=== PATIENT | female | born 1990 | race African-American/Black ===

== ENCOUNTER 2018-08-28 09:22 | Emergency (ER) | payer OTHER ==
[~2018-08-28] VITALS: Ht 170.2 cm; Wt 117.9 kg
[2018-08-28] MEDS ORDERED: KETOROLAC TROMETHAMINE 30 MG/ML VIAL IV STA (09:43)
--- NOTE | 2018-08-28 10:34 | Diagnostic Imaging Report ---
EXAM: CT Abdomen and Pelvis WITHOUT contrast INDICATION: Left flank and pelvic pain COMPARISON: None. TECHNIQUE: Abdomen and pelvis were scanned utilizing a multidetector helical scanner from the lung base to the pubic symphysis without administration of IV contrast. Absence of intravenous contrast decreases sensitivity for detection of focal lesions and vascular pathology. Coronal and sagittal reformations were obtained. Routine protocol was performed. Dose modulation, iterative reconstruction, and/or weight based adjustment of the mA/kV was utilized to reduce the radiation dose to as low as reasonably achievable. IV CONTRAST: None. ORAL CONTRAST: None RADIATION DOSE: Total DLP: 850.29 mGy*cm Estimated effective dose: (DLP x 0.015 x size factor) mSv COMPLICATIONS: None FINDINGS: LINES and TUBES: None. LOWER THORAX: Lung bases clear. Heart size normal. HEPATOBILIARY: No focal hepatic lesions. No biliary ductal dilation. GALLBLADDER: No radio-opaque stones or sludge. No wall thickening. SPLEEN: No splenomegaly. PANCREAS: No focal masses or ductal dilatation. ADRENALS: No adrenal nodules KIDNEYS/URETERS: No hydronephrosis. No cystic or solid mass lesions. No stones. GI TRACT: No abnormal distention, wall thickening, or evidence of bowel obstruction. Appendix is normal. PELVIC ORGANS/BLADDER: The uterus is present and anteverted. Ovaries are not well visualized but may be cystic. Linear densities in the right and left pelvis likely compatible with fallopian tube closure devices. The urinary bladder is empty. LYMPH NODES: No dominant abdominal, retroperitoneal or pelvic lymphadenopathy. VESSELS: Unenhanced abdominal aorta shows no evidence for aneurysm. PERITONEUM / RETROPERITONEUM: No pneumoperitoneum or ascites. BONES: No acute or suspicious bony lesions. SOFT TISSUES: Superficial surrounding soft tissue unremarkable. IMPRESSION: 1. No urinary tract calculus or hydronephrosis. 2. No CT evidence for acute abdominal or pelvic pathology. Staff: Valeria Signed by: Dr. David Shaw M.D. on 08/28/2018 10:31 AM
[2018-08-28 11:52] VITALS: BP 150/90
== END 2018-08-28 11:57 | disposition home or self-care (01) ==
LOC: FSED 09:22
DX: R10.32 Left lower quadrant pain (principal); N30.90 Cystitis, unspecified without hematuria
CPT/HCPCS: 74176; 80053; 81003; 81025; 85025; 87086; 87186; 99284; J1885

== ENCOUNTER 2019-04-14 17:43 | Emergency (ER) | payer MEDICARE, OTHER ==
[~2019-04-14] VITALS: Ht 170.2 cm; Wt 117.9 kg
--- OUTSIDE RECORDS SUMMARY | 2019-04-14 17:45 | XMS REPORT ---
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 Allergies, Adverse Reactions, Alerts This patient has no known allergies or adverse reactions. Medications This patient has no known medications. Encounters Start Date/Time End Date/Time Encounter Type Admission Type Attending [facility] Care Department Encounter ID 2017-09-14 00:00:00 2017-09-14 00:00:00 Outpatient [facility] [id number] 2017-09-02 00:00:00 2017-09-02 00:00:00 Outpatient [facility] [id number] 2017-08-18 00:00:00 2017-08-18 00:00:00 Outpatient [facility] [id number] 2017-08-18 00:00:00 2017-08-18 00:00:00 Outpatient [facility] [id number] 2017-08-11 00:00:00 2017-08-11 00:00:00 Outpatient [facility] [id number] 2017-07-21 00:00:00 2017-07-21 00:00:00 Outpatient [facility] [id number] 2017-06-14 00:00:00 2017-06-14 00:00:00 Outpatient [facility] [id number] 2017-06-10 00:00:00 2017-06-10 00:00:00 Outpatient [facility] [id number] 2017-05-26 00:00:00 2017-05-26 00:00:00 Outpatient [facility] [id number] 2017-05-19 00:00:00 2017-05-19 00:00:00 Outpatient [facility] [id number] Results Test Description Test Time Test Comments Text Results Atomic Results Result Comments CT ABD/PEL WO CONTRAST-HOPD 2018-08-28 10:22:00 [facility] [address] [place] [address] Patient Name: SALLY MA MR #: [id number] : 1990 Age/Sex: 28/F Req #: [id number] [facility] Physician: Ordered by: MARTHA WAGNER MD Report #: [id number] Location: [facility] Room/Bed: Procedure: [id number] HOPD/CT ABD/PEL WO CONTRAST-HOPD Exam Date: 08/28/18 Exam Time: 1000 REPORT STATUS: Signed EXAM: CT Abdomen and Pelvis WITHOUT contrast INDICATION: Left flank and pelvic pain COMPARISON: None. TECHNIQUE: Abdomen and pelvis were scanned utilizing a multidetector helical scanner from the lung base to the pubic symphysis without administration of IV contrast. Absence of intravenous contrast decreases sensitivity for detection of focal lesions and vascular pathology. Coronal and sagittal reformations were obtain ed. Routine protocol was performed. Dose modulation, iterative reconstruction, and/or weight based adjustment of the mA/kV was utilized to reduce the radiation dose to as low as reasonably achievable. IV CONTRAST: None. ORAL CONTRAST: None RADIATION DOSE: Total DLP: 850.29 mGy*cm Estimated effective dose: (DLP x 0.015 x size factor) mSv COMPLICATIONS: None FINDINGS: LINES and TUBES: None. LOWER THORAX: Lung bases clear. Heart size normal. HEPATOBILIARY: No focal hepatic lesions. No biliary ductal dilation. GALLBLADDER: No radio-opaque stones or sludge. No wall thickening. SPLEEN: No splenomegaly. PANCREAS: No focal masses or ductal dilatation. ADRENALS: No adrenal nodules KIDNEYS/URETERS: No hydronephrosis. No cystic or solid mass lesions. No stones. GI TRACT: No abnormal distention, wall thickening, or evidence of bowel obstruction. Appendix is normal. PELVIC ORGANS/BLADDER: The uterus is present and anteverted. Ovaries are not well visualized but may be cystic. Linear densities in the right and left pelvis likely compatible with fallopian tube closure devices. The urinary bladder is empty. LYMPH NODES: No dominant abdominal, retroperitoneal or pelvic lymphadenopathy. VESSELS: Unenhanced abdominal aorta shows no evidence for aneurysm. PERITONEUM / RETROPERITONEUM: No pneumoperitoneum or ascites. BONES: No acute or suspicious bony lesions. SOFT TISSUES: Superficial surrounding soft tissue unremarkable. IMPRESSION: 1. No urinary tract calculus or hydronephrosis. 2. No CT evidence for acute abdominal or pelvic pathology. Staff: Valeria Signed by: Dr. Pari Mann M.D. on 08/28/2018 10:31 AM Dictated By: PARI MANN MD [id number] Transcribed By: VERNA on 08/28/18 1031 COPY TO: MARTHA WAGNER MD
[2019-04-14] MEDS: KETOROLAC TROMETHAMINE 30 MG/ML VIAL IV STA (19:12)
[2019-04-14] MEDS ORDERED: SODIUM CHLORIDE 0.9% 50ML 0 ML ONE (19:25)
[2019-04-14] MEDS ORDERED: IOPAMIDOL 370 MG/ML 200 ML INFUS..BTL INJ ONE (19:25)
--- NOTE | 2019-04-14 21:21 | NUR ---
pt coming out of room mult times asking the same questions, both MD and myself have asked pt to wait in the room and we would come and decuss all her results at one time.
--- NOTE | 2019-04-14 21:34 | Diagnostic Imaging Report ---
EXAM: CT Abdomen and Pelvis WITHOUT contrast INDICATION: Abdominal pain, severe COMPARISON: Abdominal CT 08/28/2018 TECHNIQUE: Abdomen and pelvis were scanned utilizing a multidetector helical scanner from the lung base to the pubic symphysis without administration of IV contrast. Absence of intravenous contrast decreases sensitivity for detection of focal lesions and vascular pathology. Coronal and sagittal reformations were obtained. Routine protocol was performed. IV CONTRAST: None ORAL CONTRAST: None COMPLICATIONS: None RADIATION DOSE: Total DLP: 850 mGy*cm Estimated effective dose: (DLP x 0.015 x size factor) mSv CTDIvol has been reviewed. It is below the limits set by the Radiation Protocol Committee (RPC). Dose modulation, iterative reconstruction, and/or weight based adjustment of the mA/kV was utilized to reduce the radiation dose to as low as reasonably achievable. FINDINGS: LINES and TUBES: None. LOWER THORAX: Unremarkable HEPATOBILIARY: No focal hepatic lesions. No biliary ductal dilation. GALLBLADDER: No radio-opaque stones or sludge. No wall thickening. SPLEEN: No splenomegaly. PANCREAS: No focal masses or ductal dilatation. ADRENALS: No adrenal nodules KIDNEYS/URETERS: No hydronephrosis. No cystic or solid mass lesions. No stones. GI TRACT: No abnormal distention or evidence of bowel obstruction. Mild wall thickening of the gastric antrum. Greater than average colonic stool burden. Small hiatal hernia. Appendix is normal. PELVIC ORGANS/BLADDER: Tubal ligation devices in place. Urinary bladder nondistended. LYMPH NODES: No lymphadenopathy. VESSELS: Unremarkable. PERITONEUM / RETROPERITONEUM: No free air or fluid. BONES: Unremarkable. SOFT TISSUES: There is a fat containing para-umbilical hernia. IMPRESSION: 1. Greater than average colonic stool burden, correlate for constipation. 2. Subtle findings of antral gastritis. 3. Small hiatal hernia. Signed by: Bill Gray DO on 04/14/2019 9:30 PM
== END 2019-04-14 21:48 | disposition home or self-care (01) ==
LOC: FSED 17:43
DX: R10.30 Lower abdominal pain, unspecified (principal); R11.0 Nausea
CPT/HCPCS: 74177; 96374; 99284; J1885; Q9967

== ENCOUNTER 2019-11-07 02:56 | Emergency (ER) | payer OTHER, MEDICARE ==
[~2019-11-07] VITALS: Ht 170.2 cm; Wt 117.9 kg
[2019-11-07] MEDS ORDERED: KETOROLAC TROMETHAMINE 60 MG/2 ML VIAL IM ONE (04:00)
[2019-11-07] MEDS ORDERED: KETOROLAC TROMETHAMINE 60 MG/2 ML VIAL ONE (04:25)
[2019-11-07] MEDS ORDERED: AZITHROMYCIN500 MG PO (04:38)
[2019-11-07] MEDS ORDERED: IMODIUM A-1 MG/7.5 M PO (04:38)
[2019-11-07] MEDS ORDERED: PROAIR HFA INH8.5 GM PO (04:38)
[2019-11-07] MEDS ORDERED: PREDNISONE20 MG PO (04:38)
[2019-11-07] MEDS ORDERED: ONDANSETRON ODT8 MG PO (04:38)
--- NOTE | 2019-11-07 04:39 | Emergency Department Note ---
History of Present Illnes History of Present Illness Chief Complaint: cough,runny nose, st, sneezing, f/c, bodyaches,diarrhea History of Present Illness This is a 29 year old female. cough,runny nose, st, sneezing, f/c, bodyaches,diarrhea Historian: Patient Arrival Mode: Car History limited by: condition of the patient (normal) Onset (how long ago): day(s) (3) Location: n/a Quality: n/a Radiation: Reports non-radiation Severity: moderate Onset quality: gradual Duration (how long): day(s) (3) Timing of current episode: constant Progression: waxing and waning Chronicity: new Context: Denies recent illness, Denies recent surgery, Denies recent immobilization, Denies recent travel, Denies trauma/injury, Denies new medications, Denies hx of DVT/PE, Denies non-compliance w/ medications Relieving factors: none Exacerbating factors: movement Associated symptoms: Reports cough, Reports fever/chills Treatments prior to arrival: none Past Medical/Family History Physician Review I have reviewed the patient's past medical and family history. Any updates have been documented here. Past Medical History Recent Fever: Yes Clinical Suspicion of Infectio: No New/Unexplained Change in Ment: No Past Medical History: None Past Surgical History: Tubal Ligation, Social History Smoking Cessation: Never Smoker Counseling Performed: No Alcohol Use: None Any Illegal Drug Use: No TB Exposure/Symptoms: No Physically hurt or threatened: No Family History Family history of heart diseas: No Other Last Tetanus: UNKNOWN Any Pre-Existing Lines (PICC,: No Is patient up to date on immun: No Last Flu: NO Last Pneumovax: NO Review of Systems Review of Systems Constitutional: Reports as per HPI EENTM: Reports no symptoms Cardiovascular: Reports no symptoms Respiratory: Reports as per HPI Gastrointestinal: Reports as per HPI Genitourinary: Reports no symptoms Musculoskeletal: Reports as per HPI Integumentary: Reports no symptoms Neurological: Reports no symptoms Psychological: Reports no symptoms Endocrine: Reports no symptoms Hematological/Lymphatic: Reports no symptoms Review of other systems: All other systems negative Physical Exam Related Data Allergies: Coded Allergies: No Known Allergies (Unverified , 08/28/18) Triage Vital Signs Vital Signs Date Time Temp Pulse Resp B/P (MAP) Pulse Ox O2 Delivery O2 Flow Rate FiO2 11/07/19 03:30 99.5 92 18 127/95 98 Vital signs reviewed: Yes Physical Exam CONSTITUTIONAL Constitutional: Present well-developed, Present well-nourished HENT HENT: Present normocephalic, Present atraumatic, Present nose normal, Present erythema HENT L/R: Present left ext ear normal, Present right ext ear normal, Present other (sinus tenderness) EYES Eyes: Reports PERRL, Reports conjunctivae normal NECK Neck: Present ROM normal PULMONARY Pulmonary: Present effort normal, Present other (forced expiratory wheezes) CARDIOVASCULAR Cardiovascular: Present regular rhythm, Present heart sounds normal, Present capillary refill normal, Present normal rate GASTROINTESTINAL Abdominal: Present soft, Present nontender, Present bowel sounds normal GENITOURINARY Genitourinary: Present exam deferred SKIN Skin: Present warm, Present dry MUSCULOSKELETAL Musculoskeletal: Present ROM normal NEUROLOGICAL Neurological: Present alert, Present oriented x 3, Present no gross motor or sensory deficits PSYCHOLOGICAL Psychological: Present mood/affect normal, Present judgement normal Results Laboratory Laboratory Laboratory Tests Test 11/07/19 03:25 Laboratory comments covid pending Assessment & Plan Medical Decision Making MDM take below rxs Reassessment Reassessment better Assessment & Plan Final Impression: (1) Acute bronchitis (2) Reactive airway disease (3) Acute pharyngitis (4) Acute sinusitis (5) Diarrhea Last Vital Signs Date Time Temp Pulse Resp B/P (MAP) Pulse Ox O2 Delivery O2 Flow Rate FiO2 11/07/19 03:30 99.5 92 18 127/95 98 Home Meds Active Scripts Albuterol Sulf* (PROAIR HFA INHALER*) 8.5 Gm Inh, 2 INH PO Q4HR PRN for COUGH, #1 INH 1 Refill PRN COUGH, WHEEZING, SHORTNESS OF BREATH Prov:MICHAEL MALLORY 11/07/19 Prednisone (PREDNISONE) 20 Mg Tab, 60 MG PO DAILY, #18 TAB Prov:MICHAEL MALLORY 11/07/19 Azithromycin (AZITHROMYCIN) 500 Mg Tablet, 500 MG PO DAILY, #5 Prov:MICHAEL MALLORY 11/07/19 Loperamide Hcl (IMODIUM A-D) 1 Mg/7.5 Ml Liquid, 2 TAB PO Q6H PRN for DIARRHEA, #24 TAB Prov:MICHAEL MALLORY 11/07/19 Ondansetron (ONDANSETRON ODT) 8 Mg Tab.rapdis, 4 TAB PO Q4HR PRN for NAUSEA AND VOMITING, #20 TAB 1 Refill Prov:MICHAEL MALLORY 11/07/19 Medications in the ED Ketorolac Tromethamine 60 mg ONCE ONCE IM Last administered on 11/07/19at 04:22; Admin Dose 60 MG; Start 11/07/19 at 04:00; Stop 11/07/19 at 04:01; Status UNV MICHAEL MALLORY Nov 07, 2019 04:39
[2019-11-07 04:40] VITALS: BP 125/92
== END 2019-11-07 04:43 | disposition home or self-care (01) ==
LOC: FSED 02:56
DX: R05 Cough (principal); J20.9 Acute bronchitis, unspecified; J02.9 Acute pharyngitis, unspecified; J01.90 Acute sinusitis, unspecified; J45.909 Unspecified asthma, uncomplicated; R19.7 Diarrhea, unspecified; Z01.84 Encounter for antibody response examination
CPT/HCPCS: 87635; 99283; J1885

== ENCOUNTER 2020-04-15 08:43 | Emergency (ER) | payer MEDICARE ==
[~2020-04-15] VITALS: Ht 170.2 cm; Wt 117.9 kg
[~2020-04-15 08:43] MED LIST: AZITHROMYCIN500 MG PO; IMODIUM A-1 MG/7.5 M PO; ONDANSETRON ODT8 MG PO; PREDNISONE20 MG PO; PROAIR HFA INH8.5 GM PO
[2020-04-15] MEDS ORDERED: IBUPROFEN 600 MG TAB PO STA (08:58)
[2020-04-15] MEDS ORDERED: CYCLOBENZAPRINE HCL 10 MG TAB PO ONE (09:00)
--- NOTE | 2020-04-15 09:02 | Emergency Department Note ---
History of Present Illnes History of Present Illness Chief Complaint: Extremity Trauma/Pain History of Present Illness This is a 29 year old female Chief Complaint Comment PT AND BOYFRIEND CAME TOGETHER WITH SEPARATE COMPLAINTS TODAY. PT STATES LEFT THIGH AND HIP PAIN WITH NO INJURY NO TRAUMA, WALKING STEADY GAIT. AAOX4. ONSET 3 DAYS. . Historian: Patient, Family Member Arrival Mode: Car Onset (how long ago): day(s) (2) Location: back Quality: pain Radiation: Reports back; Denies non-radiation, Denies neck, Denies extremity, Denies abdomen, Denies periumbilical, Denies flank, Denies proximal, Denies distal, Denies other Severity: moderate Onset quality: gradual Duration (how long): day(s) (2) Timing of current episode: constant Progression: unchanged Chronicity: new Context: Denies recent illness, Denies recent surgery, Denies recent immobilization, Denies recent travel, Denies trauma/injury, Denies new medications, Denies hx of DVT/PE, Denies non-compliance w/ medications, Denies other Relieving factors: rest Exacerbating factors: movement Associated symptoms: Denies denies other symptoms, Denies confusion, Denies chest pain, Denies cough, Denies diaphoresis, Denies fever/chills, Denies headaches, Denies loss of appetite, Denies malaise, Denies nausea/vomiting, Denies rash, Denies seizure, Denies shortness of breath, Denies syncope, Denies weakness, Denies other Treatments prior to arrival: none Past Medical/Family History Physician Review I have reviewed the patient's past medical and family history. Any updates have been documented here. Past Medical History Recent Fever: No Clinical Suspicion of Infectio: No New/Unexplained Change in Ment: No Past Medical History: None Past Surgical History: Tubal Ligation, Social History Smoking Cessation: Never Smoker Alcohol Use: None Any Illegal Drug Use: No Other Last Tetanus: UNKNOWN Any Pre-Existing Lines (PICC,: No Review of Systems Review of Systems Constitutional: Reports no symptoms EENTM: Reports no symptoms Cardiovascular: Reports no symptoms Respiratory: Reports no symptoms Gastrointestinal: Reports no symptoms Genitourinary: Reports no symptoms Musculoskeletal: Reports as per HPI Integumentary: Reports no symptoms Neurological: Reports no symptoms Psychological: Reports no symptoms Endocrine: Reports no symptoms Hematological/Lymphatic: Reports no symptoms Physical Exam Related Data Allergies: Coded Allergies: No Known Allergies (Unverified , 08/28/18) Triage Vital Signs Vital Signs Date Time Temp Pulse Resp B/P (MAP) Pulse Ox O2 Delivery O2 Flow Rate FiO2 04/15/20 08:57 97.9 98 16 138/78 99 Room Air Physical Exam CONSTITUTIONAL Constitutional: Present well-developed, Present well-nourished HENT HENT: Present normocephalic, Present atraumatic, Present oropharynx clear/moist, Present nose normal; Absent oropharynx normal, Absent mucosae dry, Absent nasal discharge, Absent nasal congestion, Absent rhinorrhea, Absent oropharyngeal exudate, Absent tonsillar excudate, Absent pharynx abnormal, Absent erythema, Absent dentition normal, Absent dental caries, Absent other HENT L/R: Present left ext ear normal, Present right ext ear normal; Absent left TM normal, Absent right TM normal, Absent left canal normal, Absent right canal normal, Absent left impacted cerumen, Absent right impacted cerumen, Absent left bulging TM, Absent right bulging TM, Absent other EYES Eyes: Reports PERRL, Reports conjunctivae normal; Denies EOM normal, Denies lids normal, Denies left eye discharge, Denies right eye discharge, Denies scleral icterus, Denies other NECK Neck: Present ROM normal PULMONARY Pulmonary: Present effort normal, Present breath sounds normal; Absent respiratory distress, Absent rales, Absent rhonchi, Absent chest tenderness, Absent other CARDIOVASCULAR Cardiovascular: Present regular rhythm, Present heart sounds normal, Present capillary refill normal, Present normal rate; Absent irregular rhythm, Absent intact distal pulses, Absent tachycardia, Absent bradycardia, Absent murmur, Absent gallop, Absent friction rub, Absent palpable pulses, Absent strong pulses, Absent weak pulses, Absent LLE edema, Absent RLE edema, Absent other GASTROINTESTINAL Abdominal: Present soft, Present nontender, Present bowel sounds normal GENITOURINARY Genitourinary: Present exam deferred SKIN Skin: Present warm, Present dry MUSCULOSKELETAL Musculoskeletal: Present ROM normal, Present other (tenderness lumba area) NEUROLOGICAL Neurological: Present alert, Present oriented x 3, Present no gross motor or sensory deficits PSYCHOLOGICAL Psychological: Present mood/affect normal, Present judgement normal Assessment & Plan Medical Decision Making MDM muscle spasm radiculopathy Reassessment Reassessment better Assessment & Plan Final Impression: (1) Acute back pain (2) Musculoskeletal back pain Depart Disposition: HOME, SELF-CARE Last Vital Signs Date Time Temp Pulse Resp B/P (MAP) Pulse Ox O2 Delivery O2 Flow Rate FiO2 04/15/20 08:57 97.9 98 16 138/78 99 Room Air Home Meds Active Scripts Cyclobenzaprine Hcl (FLEXERIL) 5 Mg Tablet, 10 MG PO Q8H PRN for PAIN, #15 TAB 0 Refills Prov:MONICA SIERRA MD 04/15/20 Ibuprofen (MOTRIN) 200 Mg Tab, 600 MG PO TID for pain, #20 TAB Prov:MONICA SIERRA MD 04/15/20 Albuterol Sulf* (PROAIR HFA INHALER*) 8.5 Gm Inh, 2 INH PO Q4HR PRN for COUGH, #1 INH 1 Refill PRN COUGH, WHEEZING, SHORTNESS OF BREATH Prov:MICHAEL MALLORY 11/07/19 Prednisone (PREDNISONE) 20 Mg Tab, 60 MG PO DAILY, #18 TAB Prov:MICHAEL MALLORY 11/07/19 Azithromycin (AZITHROMYCIN) 500 Mg Tablet, 500 MG PO DAILY, #5 Prov:MICHAEL MALLORY 11/07/19 Loperamide Hcl (IMODIUM A-D) 1 Mg/7.5 Ml Liquid, 2 TAB PO Q6H PRN for DIARRHEA, #24 TAB Prov:MICHAEL MALLORY 11/07/19 Ondansetron (ONDANSETRON ODT) 8 Mg Tab.rapdis, 4 TAB PO Q4HR PRN for NAUSEA AND VOMITING, #20 TAB 1 Refill Prov:MICHAEL MALLORY 11/07/19 Medications in the ED Cyclobenzaprine HCl 10 mg ONCE ONCE PO ; Start 04/15/20 at 09:00; Stop 04/15/20 at 09:01; Status UNV Ibuprofen 600 mg ONCE STAT PO ; Start 04/15/20 at 08:58; Stop 04/15/20 at 08:59; Status UNV MONICA SIERRA MD Apr 15, 2020 09:02
[2020-04-15] MEDS ORDERED: MOTRIN200 MG PO (09:03)
[2020-04-15] MEDS ORDERED: CYCLOBENZAPRINE5 MG PO (09:03)
[2020-04-15] MEDS ORDERED: CYCLOBENZAPRINE HCL 10 MG TAB ONE (09:16)
[2020-04-15] MEDS ORDERED: IBUPROFEN 600 MG TAB ONE (09:16)
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
--- OUTSIDE RECORDS SUMMARY | 2020-04-15 09:39 | XMS REPORT | Clinical Summary ---
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 Active QUEtiapine (SEROQUEL) 50 Take 50 mg by 0 mg tablet mouth 2 times daily. Active Problems Not on file Immunizations Name Administration Dates Next Due Influenza Vaccine 04/11/2015 (Deferred: Adalgisa nt Refused) Social History Date Tobacco Use Types Packs/Day Years Used Never Smoker Drinks/Week oz/Week Comments Alcohol Use 0 Standard drinks or equivalent 0.0 No Sex Assigned at Date Recorded Not on file Industry Job Start Date Occupation Not on file Not on file Not on file Travel End Travel History Travel Start No recent travel history available. Last Filed Vital Signs Not on file Plan of Treatment Health Maintenance Due Date Last Done Comments HPV Cervical Cancer Scrn 2018 Pap Cervical Cancer Scrn 2018 IMM Influenza Seasonal 02/21/2020Feb to July (>/= 19 yrs) Results Not on fileafter 04/15/2019 Insurance Type Payer Benefit Subscriber ID Effective Phone Address Plan / Dates Group AARP MEDICARE COMPLETE AARP xxxxxxxxxxx 2018-P [address] [place] [address] [place] [address] [place] MEDICA[place] [id number] xxxxxxxxx 2018- [phone] [address] QUALIFIED Present [address]IC[address] [place], [place] BENEFICIAR [id number] Y [facility] SELF-PAY SELF-PAY xxxxxxxxx 2018- [phone] [id number] [place] [address]
== END 2020-04-15 09:45 | disposition home or self-care (01) ==
LOC: FSED 08:53
DX: M54.5 Low back pain (principal); M25.552 Pain in left hip; M79.652 Pain in left thigh
CPT/HCPCS: 99283

== ENCOUNTER 2020-08-20 13:19 | Emergency (ER) | payer MEDICARE ==
[~2020-08-20] VITALS: Ht 170.2 cm; Wt 122.0 kg
[~2020-08-20 13:19] MED LIST changes: +CYCLOBENZAPRINE5 MG PO; +MOTRIN200 MG PO
[2020-08-20] MEDS ORDERED: HYDROCODONE/APAP 5MG-325MG TAB PO ONE (14:00)
[2020-08-20] MEDS ORDERED: KETOROLAC TROMETHAMINE 60 MG/2 ML VIAL IM ONE (14:15)
[2020-08-20] MEDS ORDERED: KETOROLAC TROMETHAMINE 60 MG/2 ML VIAL ONE (14:28)
[2020-08-20] MEDS ORDERED: NAPROSYN500 MG PO (14:31)
== END 2020-08-20 14:46 | disposition home or self-care (01) ==
LOC: FSED 14:05
DX: N93.8 Other specified abnormal uterine and vaginal bleeding (principal); M54.9 Dorsalgia, unspecified; G89.29 Other chronic pain
CPT/HCPCS: 81003; 81025; 85025; 99283; J1885